=== PATIENT | female | born 1995 | race African-American/Black ===

== ENCOUNTER 2017-08-11 15:35 | Emergency (ER) | END 2017-08-11 19:31 | disposition left against medical advice (07) | LOC: M ED 15:35 | DX: Z53.21 Procedure and treatment not carried out due to patient leaving prior to being seen by health care provider (principal) ==

== ENCOUNTER 2018-06-28 17:48 | Emergency (ER) | payer OTHER ==
[~2018-06-28] VITALS: Ht 160 cm; Wt 59.1 kg
[2018-06-28 17:49] VITALS: BP 124/72
[2018-06-28] MEDS ORDERED: KETOROLAC 60 MG/2 ML VIAL (J1885) IM ONE (18:30)
[2018-06-28] MEDS ORDERED: BACLOFEN 10 MG TAB PO ONE (18:30)
[2018-06-28] MEDS ORDERED: KETO10TAB PO (19:17)
[2018-06-28] MEDS ORDERED: BACL10TA2 PO (19:17)
== END 2018-06-28 19:23 | disposition home or self-care (01) ==
LOC: M ED 18:41
DX: S46.912A Strain of unspecified muscle, fascia and tendon at shoulder and upper arm level, left arm, initial encounter (principal); X58.XXXA Exposure to other specified factors, initial encounter; Y92.89 Other specified places as the place of occurrence of the external cause
CPT/HCPCS: 96372; 99282; J1885